=== PATIENT | female | born 1955 ===

== ENCOUNTER 2016-07-27 16:52 | Emergency (ER) | payer OTHER ==
--- NOTE | 2016-07-27 18:13 | UC ---
Abdominal Pain Female HPI - HPI Summary HPI Summary: epigastric abdominal pain , reflux x 5 days hx of GERD out of her PPI no chest pain , no SOB no n/v/d/c - History of Current Complaint Chief Complaint: UCChestPain Stated Complaint: INDEGESTION/HEARTBURN Time Seen by Provider: 07/27/16 17:41 Hx Obtained From: Patient Onset/Duration: Gradual Onset, Lasting Days - 5, Still Present Timing: Constant Severity Initially: Moderate Severity Currently: Moderate Location: Epigastric Character: Burning Aggravating Factor(s): Food Alleviating Factor(s): NPO, Other: - ppi Associated Signs and Symptoms: Negative: Fever, Cough, Chest Pain, Dizzy, Back Pain, Constipation, Blood in Stool, Urinary Symptoms, Decreased Appetite, Vaginal Bleeding, Vaginal Discharge, Nausea, Vomiting, Diarrhea Allergies/Adverse Reactions: Allergies Allergy/AdvReac Type Severity Reaction Status Date / Time No Known Allergies Allergy Verified 07/27/16 17:52 Home Medications: Home Medications Omeprazole CAP* [Prilosec CAP* 20 MG] 20 mg PO DAILY 07/27/16 [History Confirmed 07/27/16] PMH/Surg Hx/FS Hx/Imm Hx Cardiovascular History Of: Reports: Hypertension Respiratory History Of: Reports: COPD - Pt denies, Asthma - Surgical History Surgical History: Yes Surgery Procedure, Year, and Place: right leg skin graft, C-sect x 4; right cataract - Family History Known Family History: Positive: Hypertension - Social History Alcohol Use: None Substance Use Type: None Smoking Status (MU): Heavy Every Day Tobacco Smoker Review of Systems Constitutional: Negative Skin: Negative Eyes: Negative ENT: Negative Respiratory: Negative Gastrointestinal: Abdominal Pain All Other Systems Reviewed And Are Negative: Yes Physical Exam Triage Information Reviewed: Yes Appearance: Well-Appearing, No Pain Distress, Well-Nourished Vital Signs: Initial Vital Signs Temp 98.9 F 07/27/16 17:26 Pulse 89 07/27/16 17:26 Resp 24 07/27/16 17:26 BP 193/86 07/27/16 17:26 Pulse Ox 93 07/27/16 17:26 Vital Signs Reviewed: Yes Eyes: Positive: Conjunctiva Clear ENT: Positive: Normal ENT inspection, Hearing grossly normal, Pharynx normal Neck: Positive: Supple, Nontender, No Lymphadenopathy Respiratory: Positive: Chest non-tender, Lungs clear, Normal breath sounds Cardiovascular: Positive: RRR, No Murmur, Pulses Normal Abdominal Exam: Normal Abdomen Description: Positive: Nontender, Soft. Negative: CVA Tenderness (R), CVA Tenderness (L), Distended, Guarding Bowel Sounds: Positive: Present Abd Pain Female Course/Dx - Differential Dx/Diagnosis Provider Diagnoses: GERD Discharge - Discharge Plan Condition: Stable Disposition: HOME Prescriptions: Omeprazole 40 mg PO DAILY #30 cap Patient Education Materials: Gastroesophageal Reflux Disease (ED)
[2016-07-27 18:14] VITALS: BP 193/86
== END 2016-07-27 18:15 | disposition home or self-care (01) ==
LOC: UCCORT 16:52
DX: K21.9 Gastro-esophageal reflux disease without esophagitis (principal); I10 Essential (primary) hypertension; J44.9 Chronic obstructive pulmonary disease, unspecified; Z98.41 Cataract extraction status, right eye; F17.210 Nicotine dependence, cigarettes, uncomplicated
CPT/HCPCS: 93005; 99202; G0463

== ENCOUNTER 2017-10-05 10:26 | Emergency (ER) | payer OTHER ==
--- NOTE | 2017-10-05 13:17 | ED ---
Upper Extremity Pain - HPI Summary HPI Summary: 61 year old female presents with complaints or right elbow and shoulder pain s/ p slip and fall last night approximately 12:30 am. States she fell onto wood floor landing onto left elbow. Denies hitting head, LOC, CP, palpitations, weakness, or dizziness at time of fall. Limited ROM to shoulder due to pain. Denies numbness or tingling. Nurse/patient states had a brief episode episode of "dizziness" at time of intake that last a few seconds. Patient states she has been having these episodes for several months now. Hospitalized 4-5 months ago for same. No cause found at that time. There was no DE SANTIAGO, visual disturbances , facial droop, slurred speech, CP, palpitations, SOB, diaphoresis, N/V associated with dizziness and patient states she is assymptomatic at present. - History of Current Complaint Chief Complaint: UCUpperExtremity Stated Complaint: SP FALL/LT SHOULDER COMP Time Seen by Provider: 10/05/17 12:18 Hx Obtained From: Patient Mechanism Of Injury: Fall From A Standing Position Onset/Duration: Started Hours Ago Timing: Constant Severity Initially: Moderate Severity Currently: Moderate Pain Location: Shoulder - left, Elbow - left Character: Throbbing Aggravating Factor(s): Movement, Abduction Alleviating Factor(s): Nothing Associated Signs & Symptoms: Negative: Swelling, Redness, Bruising, Weakness, Numbness/Tingling, Chest Pain, SOB, Neck Pain, Diaphoresis, Nausea, Vomiting - Risk Factors Non-Orthopedic Risk Factor: Negative DVT Risk Factors: Negative Septic Arthritis Risk Factor: Negative - Allergies/Home Medications Allergies/Adverse Reactions: Allergies Allergy/AdvReac Type Severity Reaction Status Date / Time No Known Allergies Allergy Verified 10/05/17 12:42 Home Medications: Home Medications Albuterol 2.5MG/3ML (0.083%)* [Ventolin 2.5 MG/3 ML NEB.ANNI*] 2.5 mg INH Q6H PRN 10/05/17 [History Confirmed 10/05/17] Lisinopril/HCTZ 20/12.5(NF) [Zestoretic 20/12.5(NF)] 1 tab PO DAILY 10/05/17 [ History Confirmed 10/05/17] Metoprolol Succinate XL TAB* [Toprol XL TAB*] 100 mg PO DAILY 10/05/17 [History Confirmed 10/05/17] Naproxen [Naproxen Enteric Coated 500 MG TAB] 500 mg PO BID 10/05/17 [History Confirmed 10/05/17] Omeprazole CAP* [Prilosec CAP* 20 MG] 40 mg PO DAILY 10/05/17 [History Confirmed 10/05/17] Pravastatin Sodium [Pravachol] 40 mg PO QPM 10/05/17 [History Confirmed 10/05/17 ] PMH/Surg Hx/FS Hx/Imm Hx Cardiovascular History: Reports: Hx Hypercholesterolemia, Hx Hypertension Respiratory History: Reports: Hx Asthma, Hx Chronic Obstructive Pulmonary Disease (COPD) - Pt denies Neurological History: Reports: Hx CVA - Surgical History Surgery Procedure, Year, and Place: right leg skin graft, C-sect x 4; right cataract Infectious Disease History: No Infectious Disease History: Denies: Traveled Outside the [place] in Last 30 Days - Family History Known Family History: Positive: Hypertension - Social History Occupation: Disabled Lives: With Family Alcohol Use: None Substance Use Type: Reports: None Smoking Status (MU): Heavy Every Day Tobacco Smoker Type: Cigarettes Amount Used/How Often: 1 PPD Length of Time of Smoking/Using Tobacco: Since Age 14 Review of Systems Constitutional: Negative Eyes: Negative Cardiovascular: Negative Respiratory: Negative Gastrointestinal: Negative Positive: Arthralgia Skin: Negative Neurological: Other - dizziness All Other Systems Reviewed And Are Negative: Yes Physical Exam Triage Information Reviewed: Yes Vital Signs On Initial Exam: Initial Vitals Temp Pulse Resp BP Pulse Ox 98.2 F 106 18 94/48 95 10/05/17 12:41 10/05/17 12:41 10/05/17 12:41 10/05/17 12:41 10/05/17 12:41 Vital Signs Reviewed: Yes Appearance: Positive: Well-Appearing, Pain Distress - mildly uncomfortable, Obese Skin: Positive: Warm, Skin Color Reflects Adequate Perfusion, Dry Head/Face: Positive: Normal Head/Face Inspection, Other - Normocephalic. Atraumatic. Eyes: Positive: SANCHEZ Neck: Positive: Supple, Nontender Respiratory/Lung Sounds: Positive: Clear to Auscultation, Breath Sounds Present Cardiovascular: Positive: Normal, RRR, Pulses are Symmetrical in both Upper and Lower Extremities Abdomen Description: Positive: Nontender, Soft Musculoskeletal: Positive: Other - Tenderness to left humeral head. No gross deformity. Limited ROM especially abduction to passive ROM d/t pain. Mild medial and lateral tenderness to left elbow with palpation. No gross deformity. Full passive ROM. Neurological: Positive: Sensory/Motor Intact, Alert, Oriented to Person Place, Time, CN Intact II-III, Normal Gait, Speech Normal. Negative: Facial Droop, Slurred Speech Diagnostics - Vital Signs Vital Signs Temp Pulse Resp BP Pulse Ox 10/05/17 12:41 98.2 F 106 18 94/48 95 - Laboratory Diagnostic Studies Comment: Left shoulder X-ray reveals moderate osteoarthritis of the left AC joint with mild osteoarthritis of the glenohumeral joint. No acute fracture or dislocation. Left elbow X-ray reveals ulnar-trochlear and radial-capitellar osteoarthritis without evidence of fracture or dislocation. Lab Statement: Any lab studies that have been ordered have been reviewed, and results considered in the medical decision making process. Course/Dx - Course Course Of Treatment: Left shoulder and elbow pain s/p fall. Limited ROM to left shoulder d/t pain. Left shoulder and elbow X-rays show chronic changes but no acute fractures or dislocations. With patient's reported history of past CVA, her CV risk factors, and chronic dizziness I am reluctant to use anti- inflammatories at this time. Will provide a short course of a low dose narcotic to use for pain management as well a conservative measures including rest and ice. She is to follow up with her PCP in 1 week for recheck. Seek immediate medical attention in the ED for persistent dizziness, sudden severe DE SANTIAGO, LOC, visual disturbances, facial droop, speech difficulties, numbness, tingling, weakness of extremities, CP, SOB, worsening of pain despite pain medication, or any worsening of symptoms. Assessment/Plan: Left shoulder/elbow pain s/p fall - Diagnoses Differential Diagnosis/HQI/PQRI: Positive: Contusion, Fracture (Closed), Strain , Sprain, Other - dislocation Provider Diagnoses: Acute shoulder pain due to trauma, Left elbow pain Discharge - Sign-Out/Discharge Documenting (check all that apply): Patient Departure - Discharge Plan Condition: Stable Disposition: HOME Prescriptions: Hydrocodone/Acetaminophen [Hydrocodone-Acetamin 5-325 mg] 1 each PO Q8HR PRN # 21 tablet MDD 3 PRN Reason: Pain Patient Education Materials: Shoulder Pain (ED) Referrals: Shalini Jackson, PILI [Primary Care Provider] - 1 Week Additional Instructions: Do gentle ROM exercises of the elbow and shoulder as discussed to help prevent stiffening of the joints. Seek immediate medical attention in the emergency room for persistent dizziness , sudden severe DE SANTIAGO, loss of consciousness, visual disturbances, facial droop, speech difficulties, numbness, tingling, weakness of extremities, chest pain, shortness of breath, worsening of pain despite pain medication, or any worsening of symptoms. - Billing Disposition and Condition Condition: STABLE Disposition: Home
--- NOTE | 2017-10-05 13:28 | RAD ---
HISTORY: shoulder pain s/p fall COMPARISONS: None VIEWS: 4, Frontal internal rotation, external rotation, outlet, and axillary views of the left shoulder FINDINGS: BONE DENSITY: Normal. BONES: There is no displaced fracture. JOINTS: There is moderate osteoarthritis of the left AC joint with mild osteoarthritis of the glenohumeral joint. ALIGNMENT: There is no dislocation. SOFT TISSUES: Unremarkable. OTHER FINDINGS: None. IMPRESSION: OSTEOARTHRITIS. NO ACUTE OSSEOUS INJURY. IF SYMPTOMS PERSIST, RECOMMEND REPEAT IMAGING.
--- NOTE | 2017-10-05 13:29 | RAD ---
HISTORY: pain s/p fall, left elbow trauma COMPARISONS: None VIEWS: 4, Frontal, lateral, and oblique views of the left elbow FINDINGS: BONE DENSITY: Normal. BONES: There is no displaced fracture. JOINTS: There is ulnar-trochlear and radial-capitellar osteoarthritis. There is no posterior supracondylar fat pad to suggest a joint effusion. ALIGNMENT: There is no dislocation. SOFT TISSUES: Unremarkable. OTHER FINDINGS: None. IMPRESSION: OSTEOARTHRITIS. NO ACUTE OSSEOUS INJURY. IF SYMPTOMS PERSIST, RECOMMEND REPEAT IMAGING.
[2017-10-05 13:37] VITALS: BP 126/66
== END 2017-10-05 14:10 | disposition home or self-care (01) ==
LOC: UCCORT 10:26
DX: M25.511 Pain in right shoulder (principal); M25.522 Pain in left elbow; W19.XXXA Unspecified fall, initial encounter; Y93.9 Activity, unspecified; Y92.009 Unspecified place in unspecified non-institutional (private) residence as the place of occurrence of the external cause; I10 Essential (primary) hypertension; J45.909 Unspecified asthma, uncomplicated; F17.210 Nicotine dependence, cigarettes, uncomplicated; E78.00 Pure hypercholesterolemia, unspecified
CPT/HCPCS: 99213; G0463

== ENCOUNTER 2018-07-06 09:41 | Emergency (ER) | payer OTHER ==
[2018-07-06] MEDS ORDERED: methylPREDNISolone 125 MG* 2 ML VIAL IM ONE (10:19)
[2018-07-06] MEDS ORDERED: Albuterol/Ipratropium NEB.SOL* Albuterol 2.5 MG/Ipratropium 0.5 MG 3 ML INH ONE ×2 (10:19→10:52)
[2018-07-06 10:26] VITALS: BP 173/85
[2018-07-06 10:50] LABS: Influenza A Molecular NEGATIVE (Negative); Influenza B Molecular NEGATIVE (Negative)
--- NOTE | 2018-07-06 11:34 | UC ---
Shortness of Breath HPI - HPI Summary HPI Summary: 62-year-old female with history of COPD presents with onset of shortness of breath last night. States began progressively worse throughout the night despite using her albuterol inhaler. Associated with nasal congestion, wheezing , and a nonproductive cough. Denies fever, chills, ear pain, sore throat, chest pain, palpitations, weakness, dizziness, diaphoresis, edema, nausea, or vomiting. - History of Current Complaint Chief Complaint: UCRespiratory Stated Complaint: FEVERISH,COUGH Time Seen by Provider: 07/06/18 10:21 Hx Obtained From: Patient - Allergy/Home Medications Allergies/Adverse Reactions: Allergies Allergy/AdvReac Type Severity Reaction Status Date / Time No Known Allergies Allergy Verified 07/06/18 10:15 PMH/Surg Hx/FS Hx/Imm Hx Endocrine History: Dyslipidemia Cardiovascular History: Hypertension Respiratory History: COPD GI/ History: Gastroesophageal Reflux - Surgical History Surgical History: Yes Surgery Procedure, Year, and Place: right leg skin graft, C-sect x 4; right cataract - Family History Known Family History: Positive: Hypertension - Social History Occupation: Disabled Lives: With Family Alcohol Use: None Substance Use Type: None Smoking Status (MU): Heavy Every Day Tobacco Smoker Type: Cigarettes Amount Used/How Often: 1/2 PPD Length of Time of Smoking/Using Tobacco: Since Age 14 Review of Systems All Other Systems Reviewed And Are Negative: Yes Constitutional: Negative: Fever, Chills Skin: Negative: Rash Eyes: Negative: Drainage, Eye Redness ENT: Negative: Sore Throat, Ear Ache, Nasal Discharge, Sinus Congestion, Sinus Pain/Tenderness Respiratory: Positive: Shortness Of Breath, Cough Cardiovascular: Negative: Palpitations, Chest Pain Gastrointestinal: Negative: Abdominal Pain, Vomiting, Diarrhea, Nausea Genitourinary: Positive: Negative Musculoskeletal: Positive: Negative Neurological: Positive: Negative Is Patient Immunocompromised?: No Physical Exam - Summary Physical Exam Summary: GENERAL APPEARANCE: Alert and cooperative, chronically ill appearing, older adult female in mild respiratory distress who is in the tripod position. EYES: Conjunctiva clear. No drainage. EARS: External auditory canals and tympanic membranes clear, hearing grossly intact. NOSE: Mild-moderate nasal congestion. THROAT: Pharyngeal cobblestoning. No tonsilar inflammation, swelling, exudate, or lesions. Uvula midline. NECK: Neck supple, non-tender without lymphadenopathy. CARDIAC: Normal S1 and S2. No S3, S4 or murmurs. Rhythm is irregularly irregular. There is no peripheral edema, cyanosis or pallor. Extremities are warm and well perfused. Capillary refill is less than 2 seconds. Peripheral pulses intact. LUNGS: Diminished bilateral breath sounds with diffuse wheezing. ABDOMEN: Positive bowel sounds. Soft, nondistended, nontender. No guarding or rebound. No masses or hepatosplenomegally. MUSKULOSKELETAL: ROM intact to all extremities. No joint erythema or tenderness. Normal muscular development. Normal gait. SKIN: Skin normal color, texture and turgor with no lesions or eruptions. Triage Information Reviewed: Yes Vital Signs: Initial Vital Signs Temp 100.6 F 07/06/18 10:16 Pulse 113 07/06/18 10:16 Resp 32 07/06/18 10:16 BP 173/85 07/06/18 10:16 Pulse Ox 86 07/06/18 10:16 Vital Signs Reviewed: Yes Diagnostics - EKG Cardiac Rate: Tachycardia Cardiac Rhythm: Sinus: Normal Ectopy: PACs ST Segment: Normal EKG Comparison: No Significant Change - Compared to EKG from 07/27/2016 Summary of EKG Findings: ST with PACs. No [place] or T-wave abnormality. No significant change when compared to study from 07/27/2016. Shortness of Breath Dx - Course Course Of Treatment: 62-year-old female with history of COPD presents with onset of shortness of breath last night. States began progressively worse throughout the night despite using her albuterol inhaler. Associated with nasal congestion, wheezing , and a nonproductive cough. Denies fever, chills, ear pain, sore throat, chest pain, palpitations, weakness, dizziness, diaphoresis, edema, nausea, or vomiting. Patient had a mildly elevated temperature of 100.6 F at triage. Hypertensive, tachycardic at a rate of 113, tachypnic at a rate of 32, and pulse ox of 86% on room air. She was in mild respiratory distress and was tripoding at time of initial exam. Exam was remarkable for mild to moderate nasal congestion, pharyngeal cobblestoning, decreased bilateral breath sounds with diffuse wheezing, and then irregularly irregular heart rhythm with a normal S1 and S2 without murmur or extra heart sounds. Patient was placed on oxygen 2 L by nasal cannula, given a DuoNeb and Solu-Medrol 125 mg IM. Rapid influenza was negative. Her respiratory rate improved slightly and she stated she felt like she was breathing easier after the DuoNeb treatment however she continued to have diffuse wheezing throughout. An EKG was obtained which showed sinus tachycardia with PACs without ST elevation, or T-wave abnormality. This was essentially unchanged from previous EKG from 07/27/2016. A second DuoNeb was given and a 2 view chest x-ray was obtained which showed a small right basilar infiltrate. Patient's O2 sat was rechecked on room air and dropped to 85%. Discussed findings with the patient and recommended that she be evaluated in the emergency room at this time for right basilar pneumonia and hypoxia. I recommended transportation via ambulance due to the hypoxia however patient declined stating she wanted to go by private vehicle. The patient is clinically sober, free from distracting injury, appears to have insight and reasoning and in my judgment has capacity to make decisions. I have explained that I am concerned that with her need for oxygen she could have worsening of symptoms, become critically ill, suffer diability, and even possibly if she did not transport via ambulance. The patient continues to decline transport via ambulance and is transporting to [facility] ED via private vehicle against medical advice. - Differential Dx/Diagnosis Differential Diagnosis/HQI/PQRI: Bronchitis, COPD Exacerbation, Pneumonia, Pulmonary Embolism Provider Diagnosis: Right lower lobe pneumonia Discharge - Sign-Out/Discharge Documenting (check all that apply): Patient Departure All imaging exams completed and their final reports reviewed: Yes - Discharge Plan Condition: Guarded Disposition: HOME-RECOMMEND TO ED Patient Education Materials: Pneumonia (ED) Referrals: Shalini Jackson NP [Primary Care Provider] - Additional Instructions: The rapid flu test performed in the clinic today was negative. Your chest x-ray showed pneumonia of the right lung. We were unable to improve your oxygen level with the breathing treatments therefore I am recommending that you go to the emergency room for further evaluation. I am recommending that you transport by ambulance due to your low oxygen level but you have chosen to transport by private vehicle. Please go directly to the emergency room from here. - Billing Disposition and Condition Condition: GUARDED Disposition: Home-Recommend to ED
== END 2018-07-06 12:33 | disposition home health service (06) ==
LOC: UCCORT 09:41
DX: J18.1 Lobar pneumonia, unspecified organism (principal); R06.02 Shortness of breath; E78.5 Hyperlipidemia, unspecified; I10 Essential (primary) hypertension; J44.9 Chronic obstructive pulmonary disease, unspecified; K21.9 Gastro-esophageal reflux disease without esophagitis; R00.0 Tachycardia, unspecified; F17.210 Nicotine dependence, cigarettes, uncomplicated
CPT/HCPCS: 71046; 93005; 96372; 99213; A9270-GY; G0463; J2930